=== PATIENT | male | born 1975 | race Caucasian/White ===

== ENCOUNTER 2016-09-24 01:22 | Emergency (ER) | payer MEDICAID ==
[~2016-09-24] VITALS: Ht 175.3 cm; Wt 87.5 kg
[2016-09-24 01:31] VITALS: Ht 175.3 cm; Wt 87.5 kg
[2016-09-24] MEDS ORDERED: ALBU8.5H3 INH (03:18)
[2016-09-24] MEDS ORDERED: BENZ100C70 PO (03:18)
[2016-09-24] MEDS ORDERED: AZIT250T94 PO (03:18)
--- NOTE | 2016-09-24 03:22 | ERD ---
ER Documentation Chief Complaint Date/Time DATE: 09/24/16 TIME: 03:19 Chief Complaint cough for 4 days that is not getting better HPI Patient is a 41-year-old male with past medical history of tracheotomy presents emergency department with a cough 4 days. Patient states that his cough is initially dry however it is now become productive with yellow phlegm production. Patient states that he is having coughing spells causing him to have difficulty sleeping during the night. Patient also reports a sore throat. Patient denies any trismus, drooling or hyperextension of his neck. Patient reports trying numerous [id number] cough syrups as well as taking a friend 's amoxicillin tablets. Patient denies any fevers or chills. Patient denies any nausea, vomiting, vomiting or diarrhea. No recent travel. No sick contacts. ROS All systems reviewed and are negative except as per history of present illness. Medications Home Meds Active Scripts Albuterol Sulfate* (Proair HFA*) 8.5 Gm Hfa.aer.ad, 2 PUFF INH Q4, #1 INHALER Prov:PINO MALIK PA-C 09/24/16 Benzonatate* (Tessalon Perle*) 100 Mg Capsule, 100 MG PO Q8H Y for COUGH, #20 CAP Prov:PINO MALIK PA-C 09/24/16 Azithromycin* (Zithromax*) 250 Mg Tablet, 250 MG PO .ZPACK DIRECTED, #6 TAB TAKE 500 MG (2 TABS) THE FIRST DAY THEN 250 MG (1 TAB) DAYS 2-5 Prov:PINO MALIK PA-C 09/24/16 PMhx/Soc Medical and Surgical Hx: pt denies Medical Hx, pt denies Surgical Hx History of Surgery: Yes (Tracheotomy) Hx Alcohol Use: No Hx Substance Use: No Hx Tobacco Use: No Smoking Status: Never smoker FmHx Family History: No diabetes Physical Exam Vitals Vital Signs Date Time Temp Pulse Resp B/P Pulse Ox O2 Delivery O2 Flow Rate FiO2 09/24/16 03:10 99 Room Air 09/24/16 01:31 97.9 77 16 162/89 95 Physical Exam GENERAL: Well-developed, well-nourished male. Appears in no acute distress. Speaking in full sentences. No Abdominal retractions, no nasal flaring, no tripoding. HEAD: Normocephalic, atraumatic. No deformities or ecchymosis. EYE: Pupils equal, round, and reactive to light. EOMs intact. No conjunctival erythema. No eye discharge. ENT: External ear without any masses or tenderness. Auditory canals clear bilaterally. TM visualized bilaterally, non-erythematous, non-bulging. Nasal mucosa pink with no discharge. Oropharynx is pink without any tonsillar erythema or exudates. No uvula deviation. No kissing tonsils. NECK: Supple. No meningismus. Normal ROM of the neck. Tracheotomy scar noted. LUNG: Clear to auscultation bilaterally. No rhonchi, wheezing, rales or coarse breath sounds. HEART: Regular rate and rhythm. No murmurs, rubs or gallops. BACK: No midline tenderness. EXTREMITES: Equal pulses bilaterally. No peripheral clubbing, cyanosis or edema. No unilateral leg swelling. NEUROLOGIC: Alert and oriented to person, place and time. Moving all four extremities. 5/5 strength in all extremities. Normal speech. Steady gait. SKIN: Normal color. Warm and dry. No rashes or lesions. Procedures/MDM MEDICAL DECISION MAKING: This is a 41-year-old male who presents with a cough 5 days. She reports trying numerous OTC medications with no relief of symptoms. Vital signs were reviewed. Patient was afebrile. Patient was not hypoxic. Patient's O2 sats were above 95%. She displayed no signs of respiratory distress. ENT exam was normal. Lung exam was normal. Given these findings, the patients presentation is most consistent with acute bronchitis. I have a much lower clinical concern for bacterial infections including pneumonia, meningitis, sinusitis, otitis externa, acute otitis media, strep pharyngitis, epiglottitis or peritonsillar abscess. PRESCRIPTIONS: Tessalon Perles, albuterol inhaler, Z-Júnior DISCHARGE: At this time, patient is stable for discharge and outpatient management. Supportive therapies such as OTC throat lozenges, salt water gurgles, popsicles and jello discussed. I have instructed the patient to follow-up with his/her primary care physician in 1-2 days. I have instructed the patient to promptly return to the ER for any new or worsening symptoms including increased pain, swelling, fever, nausea, vomiting, weakness or difficulty breathing. The patient and/or family expressed understanding of and agreement with this plan. All questions were answered. Home care instructions were provided. Departure Diagnosis: Primary Impression: Acute bronchitis Bronchitis organism: unspecified organism Qualified Code: J20.9 - Acute bronchitis, unspecified organism Condition: Stable Patient Instructions: Acute Bronchitis Referrals: [facility] YOU HAVE RECEIVED A MEDICAL SCREENING EXAM AND THE RESULTS INDICATE THAT YOU DO NOT HAVE A CONDITION THAT REQUIRES URGENT TREATMENT IN THE EMERGENCY DEPARTMENT. FURTHER EVALUATION AND TREATMENT OF YOUR CONDITION CAN WAIT UNTIL YOU ARE SEEN IN YOUR DOCTORS OFFICE WITHIN THE NEXT 1-2 DAYS. IT IS YOUR RESPONSIBILITY TO MAKE AN APPOINTMENT FOR FOLOW-UP CARE. IF YOU HAVE A PRIMARY DOCTOR --you should call your primary doctor and schedule an appointment IF YOU DO NOT HAVE A PRIMARY DOCTOR YOU CAN CALL OUR PHYSICIAN REFERRAL HOTLINE AT IF YOU CAN NOT AFFORD TO SEE A PHYSICIAN YOU CAN CHOSE FROM THE FOLLOWING [facility] [address] [facility] [address] [employer] [facility] [facility] [address] [facility] [address] [facility] [address] [facility] [facility] [address] [facility]. [facility] YOU HAVE RECEIVED A MEDICAL SCREENING EXAM AND THE RESULTS INDICATE THAT YOU DO NOT HAVE A CONDITION THAT REQUIRES URGENT TREATMENT IN THE EMERGENCY DEPARTMENT. FURTHER EVALUATION AND TREATMENT OF YOUR CONDITION CAN WAIT UNTIL YOU ARE SEEN IN YOUR DOCTORS OFFICE WITHIN THE NEXT 1-2 DAYS. IT IS YOUR RESPONSIBILITY TO MAKE AN APPOINTMENT FOR FOLOW-UP CARE. IF YOU HAVE A PRIMARY DOCTOR --you should call your primary doctor and schedule and appointment IF YOU DO NOT HAVE A PRIMARY DOCTOR YOU CAN CALL OUR PHYSICIAN REFERRAL HOTLINE AT . IF YOU CAN NOT AFFORD TO SEE A PHYSICIAN YOU CAN CHOSE FROM THE FOLLOWING [facility] INSTITUTIONS: [facility] [address] [place] [address] [facility] [address] [place] [address] [address] Additional Instructions: Call your primary care doctor TOMORROW for an appointment during the next 1-2 days.See the doctor sooner or return here if your condition worsens before your appointment time. PINO MALIK PA-C Sep 24, 2016 03:22
== END 2016-09-24 03:35 | disposition home or self-care (01) ==
LOC: FTE 01:22
DX: J20.9 Acute bronchitis, unspecified (principal)
CPT/HCPCS: 99284

== ENCOUNTER 2017-12-21 15:48 | Emergency (ER) | END 2017-12-21 20:35 | disposition home or self-care (01) ==

== ENCOUNTER 2018-06-17 10:15 | Emergency (ER) | payer BC, MEDICAID, OTHER ==
[~2018-06-17] VITALS: Wt 89.0 kg
[~2018-06-17 10:15] MED LIST: ACET500C5 PO; ALBU8.5H8 INH; AZIT250T PO; BENZ-6 PO; ONDA8TAB14 PO
[2018-06-17 10:18] VITALS: RESP 18
[2018-06-17] MEDS ORDERED: LORAZEPAM 1 MG TAB PO ONE (11:00)
[2018-06-17] MEDS ORDERED: LORA-441 PO (11:37)
--- NOTE | 2018-06-17 11:43 | ERD ---
ER Documentation Chief Complaint Chief Complaint NUMBNESS AND WEAKNESS SINCE LAST NIGHT; NEAR SYNCOPE HPI 42-year-old male presents the emergency department complaining of tingling. Patient states he was in his usual state of health, which is to say that he is under a significant amount of stress at work, until last night at which time he began having tingling all over his body. This was associated with shortness of breath and chest pain. Shortness of breath and chest pain were nonspecific and related to the stress and did not start prior to that. He has had them before with previous episodes of being evaluated for "stress." He reports feeling depressed and occasionally has suicidal thoughts, but no plan of suicide. He denies auditory or visual hallucinations. He states the stress, anxiety as well as depression has been worsening over the last few days. ROS All systems reviewed and are negative except as per history of present illness. Medications Home Meds Active Scripts Lorazepam* (Ativan*) 0.5 Mg Tablet, 0.5 MG PO Q8H PRN for ANXIETY, #10 TAB Prov:DARRION TRIPATHI 06/17/18 Ondansetron (Ondansetron Odt) 8 Mg Tab.rapdis, 8 MG PO Q6H PRN for NAUSEA AND/OR VOMITING, #8 TAB Prov:KIMBERLY GANDHI MD 12/21/17 Acetaminophen* (Tylophen*) 500 Mg Capsule, 1 CAP PO Q6H PRN for PAIN AND OR ELEVATED TEMP, #15 CAP Prov:KIMBERLY GANDHI MD 12/21/17 Albuterol Sulfate* (Proair HFA*) 8.5 Gm Hfa.aer.ad, 2 PUFF INH Q4, #1 INHALER Prov:PINO MALIK PA-C 09/24/16 Benzonatate* (Tessalon Perle*) 100 Mg Capsule, 100 MG PO Q8H PRN for COUGH, #20 CAP Prov:PINO MALIK PA-C 09/24/16 Azithromycin* (Zithromax*) 250 Mg Tablet, 250 MG PO .ZPACK DIRECTED, #6 TAB TAKE 500 MG (2 TABS) THE FIRST DAY THEN 250 MG (1 TAB) DAYS 2-5 Prov:PINO MALIK PA-C 09/24/16 Allergies Allergies: Coded Allergies: No Known Allergy (Unverified , 06/17/18) PMhx/Soc History of Surgery: Yes (Tracheotomy) Anesthesia Reaction: No Hx Neurological Disorder: No Hx Respiratory Disorders: No Hx Cardiac Disorders: No Hx Psychiatric Problems: No Hx Miscellaneous Medical Probl: No Hx Alcohol Use: No Hx Substance Use: No Hx Tobacco Use: No Smoking Status: Never smoker Physical Exam Vitals Vital Signs Date Temp Pulse Resp B/P (MAP) Pulse Ox O2 O2 Flow FiO2 Time Delivery Rate 06/17/18 98.0 96 18 151/92 99 10:18 (111) Physical Exam GENERAL: The patient is well developed and appropriate for usual state of health in no apparent distress HEENT: Pupils equal, round, and reactive to light. EOMI. There is no scleral icterus. NECK: C-spine is soft and supple, there is no meningismus. There is no cervical lymphadenopathy. LUNGS: Clear to auscultation bilaterally. There are no rales, wheezes or rhonchi. HEART: Regular rate and rhythm, no murmurs, clicks, rubs or gallops. ABDOMEN: Soft, non-tender, non-distended. There are bowel sounds in all four quadrants. No rebound or guarding. EXTREMITIES: There is no peripheral cyanosis or edema. No focal swelling or erythema. NEURO: The patient moves all four extremities with 5/5 strength. Cranial nerves II - XII are intact. Normal gait. Alert and oriented SKIN: There is no apparent rash or petechiae. HEME/LYMPHATIC: There is no evidence of excessive bruising or lymphedema. PSYCHIATRIC: Anxious. Depressed. No suicidal thoughts at this time. No auditory or visual hallucinations. Result Diagram: 06/17/18 1046 06/17/18 1046 Results 24 hrs Laboratory Tests Test 06/17/18 10:46 White Blood Count 8.4 10^3/ul Red Blood Count 5.06 10^6/ul Hemoglobin 15.1 g/dl Hematocrit 45.6 % Mean Corpuscular Volume 90.1 fl Mean Corpuscular Hemoglobin 29.8 pg Mean Corpuscular Hemoglobin Concent 33.1 g/dl Red Cell Distribution Width 13.1 % Platelet Count 260 10^3/UL Mean Platelet Volume 10.3 fl Immature Granulocytes % 0.200 % Neutrophils % 47.0 % Lymphocytes % 44.3 % Monocytes % 7.0 % Eosinophils % 1.1 % Basophils % 0.4 % Nucleated Red Blood Cells % 0.0 /100WBC Immature Granulocytes # 0.020 10^3/ul Neutrophils # 4.0 10^3/ul Lymphocytes # 3.7 10^3/ul Monocytes # 0.6 10^3/ul Eosinophils # 0.1 10^3/ul Basophils # 0.0 10^3/ul Nucleated Red Blood Cells # 0.0 10^3/ul Sodium Level 140 mmol/L Potassium Level 4.1 mmol/L Chloride Level 104 mmol/L Carbon Dioxide Level 26 mmol/L Anion Gap 10 Blood Urea Nitrogen 13 mg/dl Creatinine 0.89 mg/dl Est Glomerular Filtrat Rate mL/min > 60 mL/min Glucose Level 101 mg/dl Calcium Level 9.7 mg/dl Troponin I < 0.012 ng/ml Current Medications Medications Dose Sig/Davonte Start Time Status Last (Trade) Ordered Route PRN Stop Time Admin Dose Reason Admin Lorazepam 1 mg ONCE ONCE 06/17/18 DC 06/17/18 (Ativan) PO 11:00 10:41 06/17/18 11:01 Procedures/MDM Patient was taken to a room, seen and evaluated. Comfort measures were initiated. Diagnostic tests were ordered and reviewed. 3 LEAD RHYTHM STRIP: Normal sinus rhythm without ectopy EK lead EKG reviewed by myself: Normal Sinus Rhythm Normal [place] and intervals No ST elevation, depression, or T wave inversion Impression: Normal EKG RADIOLOGY: Reviewed with the radiologist REEVALUATION: With medication, patient deescalated. He remained awake alert and oriented. Diagnostic tests were appreciated and discussed with him. MEDICAL DECISION MAKIN-year-old male presents the emergency department with nonspecific symptoms that seem to be related to anxiety and depression. At this time he does not appear to be suicidal or homicidal, but he has thought about suicidal in the past. He has good protective features as well and states he is not suicidal at this current time. In regards to the chest pain shortness of breath, this appears to be anxiety related and does not appear to be cardiac related or related to pneumonia or any other high-risk concerns based on his workup. Overall, he appears clinically well and appropriate for outpatient supportive care. Departure Diagnosis: Primary Impression: Anxiety Condition: Stable Patient Instructions: Recognizing Suicide Warning Signs in Yourself, Anxiety Reaction Referrals: [facility] YOU HAVE RECEIVED A MEDICAL SCREENING EXAM AND THE RESULTS INDICATE THAT YOU DO NOT HAVE A CONDITION THAT REQUIRES URGENT TREATMENT IN THE EMERGENCY DEPARTMENT. FURTHER EVALUATION AND TREATMENT OF YOUR CONDITION CAN WAIT UNTIL YOU ARE SEEN IN YOUR DOCTORS OFFICE WITHIN THE NEXT 1-2 DAYS. IT IS YOUR RESPONSIBILITY TO MAKE AN APPOINTMENT FOR FOLOW-UP CARE. IF YOU HAVE A PRIMARY DOCTOR --you should call your primary doctor and schedule an appointment IF YOU DO NOT HAVE A PRIMARY DOCTOR YOU CAN CALL OUR PHYSICIAN REFERRAL HOTLINE AT IF YOU CAN NOT AFFORD TO SEE A PHYSICIAN YOU CAN CHOSE FROM THE FOLLOWING [facility] [address] [facility]. [facility] [address] [facility] [facility] [address] [facility] [facility] [address] [facility]. [facility] [address] [facility] [facility] [address] Additional Instructions: [facility] referral provided. DARRION TRIPATHI Jun 17, 2018 11:43
[2018-06-17 11:52] VITALS: BP 136/90; PULSE 68
== END 2018-06-17 11:55 | disposition home or self-care (01) ==
LOC: E/R 10:15
DX: F41.9 Anxiety disorder, unspecified (principal); R40.2142 Coma scale, eyes open, spontaneous, at arrival to emergency department; R40.2362 Coma scale, best motor response, obeys commands, at arrival to emergency department; R40.2252 Coma scale, best verbal response, oriented, at arrival to emergency department; R07.9 Chest pain, unspecified
CPT/HCPCS: 36415; 71045; 80048; 84484; 85025; 93005